=== PATIENT | female | born 1995 | race Two or more races ===

== ENCOUNTER 2023-12-31 10:51 | Inpatient (IN) | payer MEDICAID, OTHER ==
[~2023-12-31] VITALS: Ht 157.5 cm; Wt 84.0 kg
[2023-12-31 11:46] LABS: Basophils # (auto) 0 10 ^3/uL (0-0.2); Basophils % (auto) 0.1 % (0.0-2.0); Eosinophils # (auto) 0 10 ^3/uL (0-0.8); Hematocrit 40.8 % (36.0-46.0); Hemoglobin 13.7 g/dL (12.2-16.2); Lymphocytes % (auto) 6.1 % (10.0-50.0); Mean Corpuscular Hemoglobin 30.7 pg (28.0-32.0); Mean Corpuscular Hgb Conc. 33.5 g/dL (32.0-36.0); Mean Corpuscular Volume 91.6 fL (80.0-100.0); Monocytes # (auto) 0.5 10 ^3/uL (0-1.3); Monocytes % (auto) 2.8 % (0.0-12.0); Neutrophils # (auto) 15.6 10 ^3/uL (1.6-8.6); Platelet Count (auto) 299 10^3/uL (140-450); Red Blood Cells 4.45 10^6/uL (4.0-5.20); Red Cell Distribution Width 14.6 % (11.8-14.3); White Blood Cell 17.1 10^3/uL (4.4-10.8)
[2023-12-31 12:04] LABS: Alanine Aminotransferase 148 U/L (7-40); Albumin 4.8 g/dL (3.2-4.8); Alkaline Phosphatase 57 U/L (46-116); Anion Gap 10 (5-15); Aspartate Aminotransferase 55 U/L (13-40); BUN/Creatinine Ratio 12.3 (10.0-20.0); Blood Urea Nitrogen 8 mg/dL (9-23); Calcium 9.9 mg/dL (8.7-10.4); Carbon Dioxide 21 mmol/L (20-30); Chloride 104 mmol/L (98-107); Glucose 125 mg/dL (74-106); Potassium 3.2 mmol/L (3.5-5.1); Sodium 135 mmol/L (136-145)
[2023-12-31 12:05] LABS: Total Protein 8.5 g/dL (5.7-8.2)
[2023-12-31 12:13] VITALS: PULSE 89; RESP 16; O2SAT 97
[2023-12-31 12:15] LABS: Urine Bacteria None Seen /hpf (None Seen)
[2023-12-31 12:17] LABS: Lipase 29 U/L (12-53)
[2023-12-31] MEDS: SODIUM CHLORIDE 0.9% 1,000 ML IV ONE (12:29)
[2023-12-31] MEDS: ONDANSETRON HCL 4 MG/2 ML VIAL IV ONE ×2 (12:31→18:15)
[2023-12-31 12:36] LABS: Urine Blood 3+ /uL (Negative); Urine Clarity Turbid (Clear); Urine Color Light-Orange (Yellow); Urine Mucus MANY (None Seen); Urine Protein, UAD 2+ (Negative); Urine Specific Gravity 1.038 (1.001-1.035); Urine Urobilinogen Normal (Negative); Urine WBC 30 /hpf (0 - 5)
[2023-12-31] MEDS: PIPERACILLIN-TAZOB 3.375GM 100 ML IV ONE (14:00)
[2023-12-31] MEDS: IOHEXOL 300 MG/ML 100ML BOTTLE IJ ONE (14:03)
[2023-12-31] MEDS: fentaNYL CITRATE 100 MCG/2 ML VL IV ONE (15:15)
[2023-12-31] MEDS ORDERED: ONDANSETRON HCL 4 MG/2 ML VIAL IV PRN (15:45)
[2023-12-31] MEDS ORDERED: HYDROmorphone HCL 2 MG/ML VL/or syr IV PRN ×3 (15:45→18:15)
[2023-12-31] MEDS: D5W/LACTATED RINGERS 1,000 ML IV ONE (15:45)
[2023-12-31] MEDS ORDERED: PIPERACILLIN-TAZOB 3.375GM 100 ML IV SCH (15:45)
[2023-12-31] MEDS ORDERED: LACTATED RINGER'S 1,000 ML IV ONE (15:45)
[2023-12-31] MEDS: LIDOCAINE W/ EPINEPHRINE 1% 20ML VIAL ONE (16:08)
[2023-12-31] MEDS: BUPIVACAINE 0.25% INJ 50ML VIAL ONE (16:08)
[2023-12-31] MEDS ORDERED: PROPOFOL 10 MG/ML 20 ML IV ONE (16:28)
[2023-12-31] MEDS ORDERED: ONDANSETRON HCL 4 MG/2 ML VIAL ONE (16:28)
[2023-12-31] MEDS ORDERED: MIDAZOLAM HCL 2MG/2ML 2ml VIAL (1mg/ml) ONE (16:28)
[2023-12-31] MEDS ORDERED: fentaNYL CITRATE 100 MCG/2 ML VL ONE (16:28)
[2023-12-31] MEDS ORDERED: ROCURONIUM 10MG/ML 10ML VIAL IV ONE (16:32)
[2023-12-31] MEDS ORDERED: MEPERIDINE HCL (25 MG/ML) 1ML VIAL ONE (17:07)
[2023-12-31] MEDS ORDERED: GLYCOPYRROLATE 0.2 MG/ML 1ML VIAL ONE (17:24)
[2023-12-31] MEDS ORDERED: NEOSTIGMINE 1 MG/ML INJ (10mg/10ML VIAL) ONE (17:24)
[2023-12-31 17:44] VITALS: PULSE 95; RESP 15; O2SAT 100; O2SAT 96
[2023-12-31 18:00] VITALS: PULSE 78; RESP 20; O2SAT 100
[2023-12-31 18:51] VITALS: BP 118/72; PULSE 90; RESP 17; RESP 18; TEMP 98.5; O2SAT 95
[2023-12-31 19:05] VITALS: BP 116/64; PULSE 80; RESP 17; TEMP 98.8; O2SAT 100
[2023-12-31] MEDS: HYDROmorphone HCL 2 MG/ML VL/or syr IV ONE (20:21)
[2023-12-31] MEDS: PIPERACILLIN-TAZOB 3.375GM 100 ML IV SCH (20:22)
[2023-12-31] MEDS: D5W/SOD CHL 0.45%/KCL 20MEQ 1,000 ML IV SCH (20:32)
[2023-12-31 22:00] VITALS: BP 112/66; PULSE 97; RESP 18; TEMP 98.6; O2SAT 97
[2023-12-31] MEDS: metroNIDAZOLE 500MG/100ML 100 ML IV SCH (22:06)
[2023-12-31] MEDS: SODIUM CHLOR 0.9% PF (SALINE LOCK) 10ML VIAL/SYR IV SCH (22:06)
[2024-01-01] VITALS (7 sets, daily range): BP systolic 94–135; BP diastolic 54–64; PULSE 70–105; RESP 15–18; TEMP 97.9–100.1; O2SAT 92–98
[2024-01-01] MEDS ORDERED: PIPERACILLIN-TAZOB 3.375GM 100 ML IV SCH
[2024-01-01] MEDS: HYDROcodone-ACET 5/325MG TAB PO PRN (05:13)
[2024-01-01 06:32] LABS: Basophils # (auto) 0 10 ^3/uL (0-0.2); Eosinophils # (auto) 0 10 ^3/uL (0-0.8); Hematocrit 34.3 % (36.0-46.0); Hemoglobin 11.9 g/dL (12.2-16.2); Lymphocytes % (auto) 7.1 % (10.0-50.0); Mean Corpuscular Hemoglobin 31.2 pg (28.0-32.0); Mean Corpuscular Hgb Conc. 34.6 g/dL (32.0-36.0); Mean Corpuscular Volume 90.1 fL (80.0-100.0); Monocytes # (auto) 0.3 10 ^3/uL (0-1.3); Monocytes % (auto) 2.4 % (0.0-12.0); Neutrophils # (auto) 12.4 10 ^3/uL (1.6-8.6); Neutrophils % (auto) 90.5 % (37.0-80.0); Platelet Count (auto) 226 10^3/uL (140-450); Red Blood Cells 3.81 10^6/uL (4.0-5.20); Red Cell Distribution Width 14.2 % (11.8-14.3); White Blood Cell 13.7 10^3/uL (4.4-10.8)
[2024-01-01 06:53] LABS: Alanine Aminotransferase 87 U/L (7-40); Albumin 3.7 g/dL (3.2-4.8); Alkaline Phosphatase 43 U/L (46-116); Anion Gap 6 (5-15); Aspartate Aminotransferase 23 U/L (13-40); Calcium 8.7 mg/dL (8.7-10.4); Carbon Dioxide 24 mmol/L (20-30); Chloride 106 mmol/L (98-107); Glucose 135 mg/dL (74-106); Potassium 3.2 mmol/L (3.5-5.1); Sodium 136 mmol/L (136-145)
[2024-01-01 06:54] LABS: Total Protein 6.5 g/dL (5.7-8.2)
[2024-01-01 07:03] LABS: Blood Urea Nitrogen < 5 mg/dL (9-23)
[2024-01-01] MEDS ORDERED: PANTOPRAZOLE 40 MG/10 ML VIAL INJ IV SCH (10:00)
[2024-01-01] MEDS: PANTOPRAZOLE 40 MG/10 ML VIAL INJ IV SCH (10:17)
[2024-01-01] MEDS: POTASSIUM CHLORIDE 40 MEQ, LIDOCAINE 1% (LOCAL ANESTH.) 4 ML in SODIUM CHL 0.9% 250 ML IV ONE (10:18)
[2024-01-02] VITALS (8 sets, daily range): BP systolic 100–113; BP diastolic 59–69; PULSE 58–98; RESP 14–20; TEMP 97.6–99.5; O2SAT 90–98
[2024-01-02] MEDS: ACETAMINOPHEN 325 MG TAB PO PRN (05:41)
[2024-01-02 06:49] LABS: Basophils # (auto) 0 10 ^3/uL (0-0.2); Basophils % (auto) 0.1 % (0.0-2.0); Eosinophils # (auto) 0 10 ^3/uL (0-0.8); Eosinophils % (auto) 0.1 % (0.0-7.0); Hematocrit 34.1 % (36.0-46.0); Hemoglobin 11.6 g/dL (12.2-16.2); Lymphocytes # (auto) 1.4 10 ^3/uL (0.4-5.4); Mean Corpuscular Hemoglobin 30.8 pg (28.0-32.0); Mean Corpuscular Volume 90.4 fL (80.0-100.0); Monocytes # (auto) 0.4 10 ^3/uL (0-1.3); Monocytes % (auto) 2.9 % (0.0-12.0); Neutrophils # (auto) 11.1 10 ^3/uL (1.6-8.6); Neutrophils % (auto) 85.9 % (37.0-80.0); Nucleated Red Blood Cells % 0.1 %; Platelet Count (auto) 253 10^3/uL (140-450); Red Blood Cells 3.77 10^6/uL (4.0-5.20); Red Cell Distribution Width 13.9 % (11.8-14.3); White Blood Cell 12.9 10^3/uL (4.4-10.8)
[2024-01-02 07:07] LABS: Alanine Aminotransferase 58 U/L (7-40); Albumin 3.7 g/dL (3.2-4.8); Alkaline Phosphatase 45 U/L (46-116); Anion Gap 5 (5-15); Aspartate Aminotransferase 12 U/L (13-40); Bilirubin, Total 0.8 mg/dL (0.2-1.0); Calcium 8.6 mg/dL (8.7-10.4); Carbon Dioxide 24 mmol/L (20-30); Chloride 106 mmol/L (98-107); Glucose 121 mg/dL (74-106); Potassium 3.3 mmol/L (3.5-5.1); Sodium 135 mmol/L (136-145); Total Protein 6.6 g/dL (5.7-8.2)
[2024-01-02 07:37] LABS: Blood Urea Nitrogen < 5 mg/dL (9-23)
[2024-01-02 07:38] LABS: BUN/Creatinine Ratio 9.6 (10.0-20.0)
[2024-01-02] MEDS: DOCUSATE SOD 100 MG CAP PO PRN (08:00)
[2024-01-02] MEDS: PANTOPRAZOLE 40 MG TAB PO ONE (09:44)
[2024-01-02] MEDS: DOXYCYCLINE 100 MG TAB/CAP PO ONE (14:09)
[2024-01-02] MEDS: CIPROFLOXACIN HCL 500 MG TAB PO ONE (14:09)
[2024-01-02] MEDS: ONDANSETRON HCL 4 MG/2 ML VIAL IV PRN (15:35)
[2024-01-02 21:07] LABS: Triglycerides 100 mg/dL (< 150)
[2024-01-02 21:08] LABS: LDL Cholesterol 68 mg/dL (< 100)
[2024-01-02 21:09] LABS: Cholesterol 127 mg/dL (< 200); HDL Cholesterol 41 mg/dL (40-59)
[2024-01-02] MEDS: CIPROFLOXACIN 400MG/200ML 200 ML IV SCH (21:27)
[2024-01-02] MEDS: ENOXAPARIN SOD 40 MG/0.4 ML SYRINGE SC ONE (21:37)
[2024-01-02] MEDS ORDERED: CIPROFLOXACIN HCL 500 MG TAB PO SCH (22:00)
[2024-01-02] MEDS ORDERED: DOXYCYCLINE 100 MG TAB/CAP PO SCH (22:00)
[2024-01-03 00:51] VITALS: BP 91/53; PULSE 74; RESP 18; TEMP 98; O2SAT 95
[2024-01-03 05:00] VITALS: BP_SYST 115; BP_SYST 91; BP_DIAS 51; BP_DIAS 52; PULSE 75; RESP 18; TEMP 97.9; TEMP 98.1; O2SAT 96; O2SAT 97
[2024-01-03] MEDS: PANTOPRAZOLE 40 MG TAB PO SCH (05:15)
[2024-01-03 06:38] LABS: Basophils # (auto) 0 10 ^3/uL (0-0.2); Basophils % (auto) 0.1 % (0.0-2.0); Eosinophils # (auto) 0 10 ^3/uL (0-0.8); Eosinophils % (auto) 0.4 % (0.0-7.0); Hemoglobin 10.9 g/dL (12.2-16.2); Lymphocytes # (auto) 1.5 10 ^3/uL (0.4-5.4); Lymphocytes % (auto) 17.1 % (10.0-50.0); Mean Corpuscular Hemoglobin 31.6 pg (28.0-32.0); Mean Corpuscular Volume 90.3 fL (80.0-100.0); Monocytes # (auto) 0.4 10 ^3/uL (0-1.3); Monocytes % (auto) 4.4 % (0.0-12.0); Platelet Count (auto) 223 10^3/uL (140-450); Red Blood Cells 3.44 10^6/uL (4.0-5.20); Red Cell Distribution Width 13.8 % (11.8-14.3)
[2024-01-03 06:49] LABS: Alanine Aminotransferase 31 U/L (7-40); Alkaline Phosphatase 39 U/L (46-116); Anion Gap 5 (5-15); Aspartate Aminotransferase 8 U/L (13-40); Bilirubin, Total 0.3 mg/dL (0.2-1.0); Calcium 8.3 mg/dL (8.7-10.4); Carbon Dioxide 25 mmol/L (20-30); Chloride 108 mmol/L (98-107); Glucose 120 mg/dL (74-106); Potassium 3.1 mmol/L (3.5-5.1); Sodium 138 mmol/L (136-145); Total Protein 5.8 g/dL (5.7-8.2)
[2024-01-03 06:51] LABS: Albumin 3.3 g/dL (3.2-4.8)
[2024-01-03 06:59] LABS: BUN/Creatinine Ratio 10.9 (10.0-20.0); Blood Urea Nitrogen < 5 mg/dL (9-23)
[2024-01-03 08:00] VITALS: PULSE 82; RESP 16; O2SAT 95
[2024-01-03 09:00] VITALS: BP 118/69; PULSE 84; RESP 18; TEMP 98; O2SAT 97
[2024-01-03] MEDS: POTASSIUM EFFERVESENT TAB 25 MEQ PO ONE (09:02)
[2024-01-03] MEDS: ENOXAPARIN SOD 40 MG/0.4 ML SYRINGE SC SCH (10:00)
[2024-01-03] MEDS ORDERED: CIPR-173 PO (12:00)
[2024-01-03] MEDS ORDERED: METR-344 PO (12:00)
[2024-01-03 12:42] VITALS: BP 118/69; PULSE 82; RESP 16; TEMP 98; O2SAT 99
[2024-01-03 13:00] VITALS: BP 99/60; PULSE 65; RESP 16; TEMP 98.7; O2SAT 94
[2024-01-06 14:06] LABS: Chlamydia Trachomatis, NAA Negative (Negative); Neisseria gonorrhoeae, NAA Negative (Negative)
== END 2024-01-03 15:10 | disposition home or self-care (01) | DRG 234 ==
LOC: ER 10:51 → OVERFLOW 15:39 → WEST WING 18:55
PROVIDERS: ADMIT Internal Medicine Pulmonary Disease; ATTEND Internal Medicine Pulmonary Disease
PROC: 0DTJ4ZZ Resection of Appendix, Percutaneous Endoscopic Approach (ICD-10-PCS; principal; 2023-12-31 16:30)
DX: K35.80 Unspecified acute appendicitis (principal); R65.10 Systemic inflammatory response syndrome (SIRS) of non-infectious origin without acute organ dysfunction; E66.01 Morbid (severe) obesity due to excess calories; E87.6 Hypokalemia; R71.0 Precipitous drop in hematocrit; N39.0 Urinary tract infection, site not specified; N73.9 Female pelvic inflammatory disease, unspecified; N83.202 Unspecified ovarian cyst, left side; N83.201 Unspecified ovarian cyst, right side; K21.9 Gastro-esophageal reflux disease without esophagitis; Z68.33 Body mass index [BMI] 33.0-33.9, adult; Z79.899 Other long term (current) drug therapy
CPT/HCPCS: 36415; 74176; 74177; 76856; 80053; 80061; 81001; 81025; 83036; 83605; 83690; 84132; 84484; 84702; 85025; 87070; 87075; 87076; 87077; 87086; 87186; 87205; 96361; 96374; G0378; J2001; J2250; J2405; J2470; J2543; J2704; J3490